=== PATIENT | female | born 1985 | race Caucasian/White ===

== ENCOUNTER 2018-12-08 13:48 | Emergency (ER) | payer OTHER ==
[2018-12-08] MEDS: MECLIZINE 12.5 MG TAB PO (17:32)
[2018-12-08 17:42] LABS: ADD MAN DIFF? NO
[2018-12-08 17:51] LABS: BASOPHILS % 0.4 % (0.0-2.0); EOSINOPHILS # 0.3 10^3/ul (0.0-0.5); EOSINOPHILS % 2.4 % (0.0-7.0); HEMATOCRIT 42.7 % (37.0-47.0); HEMOGLOBIN 13.8 g/dl (12.0-16.0); LYMPHOCYTES # 3.1 10^3/ul (0.8-2.9); LYMPHOCYTES % 29.1 % (15.0-51.0); MEAN CORPUSCULAR HEMOGLOBIN 28.5 pg (29.0-33.0); MEAN CORPUSCULAR HGB CONC 32.3 g/dl (32.0-37.0); MEAN CORPUSCULAR VOLUME 88.2 fl (82.0-101.0); MEAN PLATELET VOLUME 10.4 fl (7.4-10.4); MONOCYTE # 0.5 10^3/ul (0.3-0.9); NEUTROPHIL # 6.6 10^3/ul (1.6-7.5); NEUTROPHILS % 62.6 % (39.0-77.0); PLATELET COUNT 301 10^3/UL (140-415); RED BLOOD COUNT 4.84 10^6/ul (4.20-5.40)
[2018-12-08 17:51] LABS: WHITE BLOOD COUNT 10.6 10^3/ul (4.8-10.8)
[2018-12-08 18:11] LABS: ALANINE AMINOTRANSFERASE 17 IU/L (13-69); ALBUMIN 4.7 g/dl (3.3-4.9); ALKALINE PHOSPHATASE 82 IU/L (42-121); ANION GAP 12 (5-13); ASPARTATE AMINO TRANSFERASE 27 IU/L (15-46); BILIRUBIN,INDIRECT 0.3 mg/dl (0-1.1); BILIRUBIN,TOTAL 0.3 mg/dl (0.2-1.3); BLOOD UREA NITROGEN 10 mg/dl (7-20); CALCIUM 9.6 mg/dl (8.4-10.2); CARBON DIOXIDE 26 mmol/L (21-31); CHLORIDE 105 mmol/L (97-110); CREATININE 0.52 mg/dl (0.44-1.00); Estimated GFR > 60 mL/min (>60); GLUCOSE 93 mg/dl (70-220); POTASSIUM 4.4 mmol/L (3.5-5.1); SODIUM 143 mmol/L (135-144); TOTAL PROTEIN 8.6 g/dl (6.1-8.1)
== END 2018-12-08 19:12 | disposition home or self-care (01) ==
LOC: FTE 19:12
DX: R42 Dizziness and giddiness (principal); E03.9 Hypothyroidism, unspecified
CPT/HCPCS: 80053; 85025; 99283